=== PATIENT | male | born 1975 | race Caucasian/White ===

== ENCOUNTER 2024-01-30 19:17 | Emergency (ER) | payer BC, OTHER ==
--- NOTE | 2024-01-30 20:07 | RAD REPORT ---
EXAMINATION: ONE VIEW CHEST XR CLINICAL INDICATION: ABDOMINAL DISTENTION TECHNIQUE: Frontal chest projection is submitted. Examination is limited by patient positioning and t echnique. COMPARISON: 02/01/2018 FINDINGS: Lungs are mildly emphysematous but clear. The heart is normal in size. No displaced fractures identif ied. Cervical hardware plate. IMPRESSION: No acute intrathoracic abnormalities.
[2024-01-30] MEDS ORDERED: ONDANSETRON 4 MG/2 ML VIAL ONE (21:44)
[2024-01-30] MEDS ORDERED: NA CHLORIDE 0.9% 1,000 ML ONE (21:44)
[2024-01-30] MEDS ORDERED: FAMOTIDINE 20 MG/2 ML VIAL IV ONE (21:44)
[2024-01-30] MEDS ORDERED: METOCLOPRAMIDE 10 MG/2mL INJ ONE (21:44)
[2024-01-30] MEDS ORDERED: MORPHINE 4 MG/ML SYR ONE (21:44)
[2024-01-30 21:59] LABS: Absolute Eosinophils 0.1 K/uL (0-0.5); Absolute Lymphocytes (CBC) 1.6 K/uL (0.7-4.9); Absolute Monocytes 0.5 K/uL (0.1-1.3); Absolute Neutrophil 4.1 K/uL (1.8-8.0); Basophils % 0.6 % (0-1.3); Eosinophils % 1.8 % (0-4.4); Hematocrit 39.6 % (39.6-49.0); Hemoglobin 13.2 g/dL (13.6-17.9); Lymphocytes % 25.3 % (15.3-44.8); MCH 30.9 pg (27.0-35.0); MCHC 33.5 g/dL (32.0-36.0); MCV 92.4 fL (80-100); MPV 8.4 fL (7.6-11.3); Monocytes % 7.4 % (3.3-12.3); Neutrophils % 64.9 % (41.7-73.7); Nucleated Red Blood Cells % 0.1 % (0-0); Platelets 195 thou/uL (152-406); RBC Red Blood Cell Count 4.29 M/uL (4.33-5.43); Red Cell Distribution Width 13.2 % (12.1-15.2)
[2024-01-30 22:11] LABS: Albumin 4.1 g/dL (3.4-5.0); Albumin/Globulin Ratio 1.3 (1.1-1.8); Anion Gap 12.5 mEq/L (5.0-15.0); Bilirubin Total 2.5 mg/dL (0.2-1.0); Globulin 3.2 g/dL (2.3-3.5); Potassium 3.5 mEq/L (3.5-5.1); Protein, Total 7.3 g/dL (6.4-8.2)
[2024-01-30 22:53] LABS: SARS-CoV-2 Antigen CONTROL BLUE LINE VIS/BG OK; SARS-CoV-2 Antigen Rapid Res Negative (Negative)
--- NOTE | 2024-01-30 23:39 | RAD REPORT ---
EXAM: US ABDOMEN LIMITED HISTORY: 48-year-old male. ABD PAIN COMPARISON: No relevant imaging studies available. FINDINGS: Grayscale and color-flow imaging was obtained. Partially visualized liver demonstrates diffuse increased echotexture, most suggestive of diffuse mildred atosis, with adipose tissue sparing adjacent to the gallbladder. No cholelithiasis, or biliary duct dilatation. Negative sonographic Zimmerman's sign was reported. Gallbladder wall measures 1.9 mm IMPRESSION: 1. No cholelithiasis or biliary duct dilatation. 2. Partially visualized hepatic steatosis, with hepatic adipose tissue sparing adjacent to the gallbl adder. Electronically signed by: Alexander English MD 01/30/2024 11:13 PM [facility] Due to temporary technical issues with the PACS/[employer] scribe reporting system, reports are being signed by the in-house radiologist without review as a courtesy to ensure prompt reporting the interpreting radiologist is fully responsible for the content of the report. Transcribed Date/Time: 01/30/2024 11:38 PM
[2024-01-31 00:38] LABS: Troponin High Sensitivity 5.3 pg/mL (<58.9)
[2024-01-31 00:51] LABS: Specific Gravity > 1.030 (1.005-1.030); Sqamous Epithelial None Seen /HPF (None Seen); Urine Bacteria None Seen /HPF (<20); Urine Bilirubin NEGATIVE (Negative); Urine Blood Negative (Negative); Urine Clarity Clear (Clear); Urine Color Yellow (Yellow); Urine Culture Reflex Order NOT NEEDED; Urine Glucose NEGATIVE (Negative); Urine Ketones 1+ (Negative); Urine Microscopic Reflex YN ORDER UMIC; Urine Mucus 1+ /HPF (None Seen); Urine Nitrite NEGATIVE (Negative); Urine Protein TRACE (Negative); Urine RBC None Seen /HPF (None Seen); Urine Urobilinogen 1+ (Normal); Urine WBC <5 /HPF (<5)
--- NOTE | 2024-01-31 02:32 | RAD REPORT ---
EXAM: CT Abdomen and Pelvis With Intravenous Contrast CLINICAL HISTORY: Abd pain. TECHNIQUE: Axial computed tomography images of the abdomen and pelvis with intravenous contrast. Sagittal and coronal reformatted images were created and reviewed. This CT exam was performed using one or more of the following dose reduction techniques: automated exposure control, adjustment of the mA a nd/or kV according to patient size, and/or use of iterative reconstruction technique. COMPARISON: US Abdomen 01/30/2024 10.34 PM. FINDINGS: Lung bases: Unremarkable. No mass. No consolidation. ABDOMEN: Liver: The liver is diffusely low in density compatible with steatosis. Gallbladder and bile ducts: Unremarkable. No calcified stones. No ductal dilation. Pancreas: Unremarkable. No mass. No ductal dilation. Spleen: Unremarkable. No splenomegaly. Adrenals: Unremarkable. No mass. Kidneys and ureters: Normal renal cortical enhancement. No calculi. No hydronephrosis. 3.3 cm lef t renal cyst. Additional subcentimeter hypodensities bilaterally which are too small to characterize. No follow-up imaging is recommended. JACR 2018 Apr; 264-273, Management of the Incident al Renal Mass on CT, [employer] 2020; 814-848, Bosniak Classification of Cystic Renal Masses, Version 2019. Stomach and bowel: Colonic diverticula without adjacent inflammatory change. No obstruction. No mucosal thickening. PELVIS: Appendix: The appendix is not visualized. Pericecal suture material/clip suggestive of prior append ectomy. Bladder: Unremarkable. No mass. Reproductive: Unremarkable as visualized. ABDOMEN and PELVIS: Intraperitoneal space: Unremarkable. No free air. No significant fluid collection. Bones/joints: Multilevel spondylosis. No acute fracture. No dislocation. Soft tissues: Tiny fat-containing umbilical and small bilateral fat-containing inguinal hernias. Vasculature: Unremarkable. No abdominal aortic aneurysm. Lymph nodes: Unremarkable. No enlarged lymph nodes. IMPRESSION: 1. No acute inflammatory process identified within the abdomen and pelvis. 2. Other findings as above. Electronically signed by: Erma Carter MD 01/31/2024 02:28 AM [facility] Due to temporary technical issues with the PACS/[employer] reporting system, reports are being miguel d by the in-house radiologist without review as a courtesy to ensure prompt reporting the interpreting radiologist is fully responsible for the content of the report. Transcribed Date/Time: 01/31/2024 2:31 AM
--- NOTE | 2024-01-31 02:41 | ER ---
Nurse's Notes [facility] Name: Jerry Valencia Age: 48 yrs Sex: Male : 1975 Arrival Date: 01/30/2024 Time: 19:17 Bed 14 Private MD: Diagnosis: Acute gastritis;Epigastric pain Presentation: 01/29 19:54 Chief complaint: Patient states: UMBILICAL PAIN THAT RADIATES TO STERNUM ONSET 12/17. cm10 PT STATES THAT THE PAIN GOT WORSE TODAY. PT REPORTS THAT IT STARTED OFF BURNING PAIN AND IS NOW A STABBING PAIN. PT REPORTS NAUSEA. Coronavirus screen: Client denies travel out of the [place] in the last 14 days. Ebola Screen: Patient denies travel to an Ebola-affected area in the 21 days before illness onset. No symptoms or risks identified at this time. Initial Sepsis Screen: Does the patient meet any 2 criteria? No. Patient's initial sepsis screen is negative. Does the patient have a suspected source of infection? No. Patient's initial sepsis screen is negative. Risk Assessment: Do you want to hurt yourself or someone else? Patient reports no desire to harm self or others. Onset of symptoms was January 30, 2024. 19:54 Method Of Arrival: Wheelchair cm10 19:54 Acuity: RONNELL 3 cm10 Triage Assessment: 19:56 General: Appears uncomfortable, Behavior is cooperative. Pain: Complains of pain in cm10 umbilical area Pain radiates to epigastric area Pain currently is 7 out of 10 on a pain scale. Quality of pain is described as burning, sharp, Pain began suddenly. Neuro: No deficits noted. Level of Consciousness is awake, alert, obeys commands, Oriented to person, place, time, situation, Appropriate for age. Respiratory: No deficits noted. Airway is patent Respiratory effort is even, unlabored, Respiratory pattern is regular, symmetrical. Historical: - Allergies: 19:55 No Known Allergies; cm10 - PMHx: 19:55 GERD; Hypertensive disorder; cm10 - Immunization history:: Adult Immunizations up to date. - Infectious Disease History:: Denies. - Social history:: Smoking status: Patient denies any tobacco usage or history of. - Family history:: not pertinent. Screenin:03 [facility] ED Fall Risk Assessment (Adult) History of falling in the last 3 months, ay including since admission No falls in past 3 months (0 pts) Confusion or Disorientation No (0 pts) Intoxicated or Sedated No (0 pts) Impaired Gait No (0 pts) Mobility Assist Device Used No (0 pt) Altered Elimination No (0 pt) Score/Fall Risk Level 0 - 2 = Low Risk Oriented to surroundings, Maintained a safe environment, Educated pt \T\ family on fall prevention, incl call for assistance when getting out of bed, Assessed \T\ reinforced patient's understanding of fall precautions, Hourly rounding (assess needs \T\ fall precautionary measures) done, Used ambulatory aids as needed (educated on \T\ assisted with), Used gait belt as appropriate. Abuse screen: Denies threats or abuse. Nutritional screening: No deficits noted. Tuberculosis screening: No symptoms or risk factors identified. Assessment: 22:03 Reassessment: Patient appears in no apparent distress at this time. Patient and/or ay family updated on plan of care and expected duration. Pain level reassessed. Patient is alert, oriented x 3, equal unlabored respirations, skin warm/dry/pink. General: Appears in no apparent distress. uncomfortable, Behavior is calm, cooperative, appropriate for age. Pain: Complains of pain in epigastric area Pain currently is 8 out of 10 on a pain scale. Neuro: No deficits noted. Level of Consciousness is awake, alert, obeys commands, Oriented to person, place, time, situation, Appropriate for age. Cardiovascular: Denies chest pain, Capillary refill < 3 seconds in bilateral fingers Patient's skin is warm and dry. Rhythm is sinus rhythm. Respiratory: No deficits noted. Airway is patent Respiratory effort is even, unlabored, Respiratory pattern is regular, symmetrical, Breath sounds are clear bilaterally. GI: Abdomen is round distended, Bowel sounds present X 4 quads. Abdomen is tender to palpation in epigastric area and left upper quadrant Reports upper abdominal pain, nausea, Pain is 8 out of 10 on a pain scale. vomiting. : No signs and/or symptoms were reported regarding the genitourinary system. EENT: No signs and/or symptoms were reported regarding the EENT system. Derm: No signs and/or symptoms reported regarding the dermatologic system. Musculoskeletal: No signs and/or symptoms reported regarding the musculoskeletal system. 23:40 Reassessment: Patient appears in no apparent distress at this time. Patient and/or bm8 family updated on plan of care and expected duration. Pain level reassessed. Patient is alert, oriented x 3, equal unlabored respirations, skin warm/dry/pink. Patient states feeling better. Patient states symptoms have improved. 01/30 01:22 Reassessment: Patient appears in no apparent distress at this time. Patient and/or bm8 family updated on plan of care and expected duration. Pain level reassessed. Patient is alert, oriented x 3, equal unlabored respirations, skin warm/dry/pink. awaiting ct results Patient denies pain at this time. Patient states feeling better. Patient states symptoms have improved. 02:05 Reassessment: Patient appears in no apparent distress at this time. No changes from bm8 previously documented assessment. Patient and/or family updated on plan of care and expected duration. Pain level reassessed. Patient is alert, oriented x 3, equal unlabored respirations, skin warm/dry/pink. Patient denies pain at this time. Patient states feeling better. Patient states symptoms have improved. 02:52 Reassessment: Patient appears in no apparent distress at this time. Patient and/or bm8 family updated on plan of care and expected duration. Pain level reassessed. Patient is alert, oriented x 3, equal unlabored respirations, skin warm/dry/pink. Patient denies pain at this time. Patient states feeling better. Patient states symptoms have improved. Vital Signs: 01/29 19:54 BP 146 / 98; Pulse 59; Resp 18; Temp 98.3(O); Pulse Ox 100% on R/A; Weight 123.38 kg cm10 (R); Height 6 ft. 0 in. ; Pain 7/10; 22:03 BP 116 / 75; Pulse 48; Resp 16; Temp 98.3; Pulse Ox 98% on R/A; Pain 0/10; ay 23:40 BP 114 / 71; Pulse 51; Resp 17; Temp 98.3; Pulse Ox 99% ; Pain 2/10; bm8 01/30 01:22 BP 116 / 75; Pulse 44; Resp 17; Temp 98.5; Pulse Ox 100% ; Pain 0/10; bm8 02:05 BP 109 / 73; Pulse 48; Resp 17; Temp 98.2; Pulse Ox 98% on R/A; Pain 0/10; bm8 02:52 BP 119 / 80; Pulse 48; Resp 17; Temp 98.5; Pulse Ox 98% ; Pain 0/10; bm8 01/29 19:54 Body Mass Index 36.89 (123.38 kg, 182.88 cm) cm10 01/29 19:54 Pain Scale: Adult cm10 22:03 Pain Scale: Adult ay 23:40 Pain Scale: Adult bm8 01/30 01:22 Pain Scale: Adult bm8 02:05 Pain Scale: Adult bm8 02:52 Pain Scale: Adult bm8 [place] Coma Score: 01/29 22:03 Eye Response: spontaneous(4). Motor Response: obeys commands(6). Verbal Response: ay oriented(5). Total: 15. 23:40 Eye Response: spontaneous(4). Motor Response: obeys commands(6). Verbal Response: bm8 oriented(5). Total: 15. 01/30 01:22 Eye Response: spontaneous(4). Motor Response: obeys commands(6). Verbal Response: bm8 oriented(5). Total: 15. 02:05 Eye Response: spontaneous(4). Motor Response: obeys commands(6). Verbal Response: bm8 oriented(5). Total: 15. 02:52 Eye Response: spontaneous(4). Motor Response: obeys commands(6). Verbal Response: bm8 oriented(5). Total: 15. 20:26 Eye Response: spontaneous(4). Motor Response: obeys commands(6). Verbal Response: sp4 oriented(5). Total: 15. ED Course: 01/29 19:20 Patient arrived in ED. gm2 19:30 Carlos Nam MD is Attending Physician. sarmad 19:55 Triage completed. cm10 19:56 Arm band placed on right wrist. Patient placed in waiting room. cm10 19:58 Chest Single View XRAY In Process Unspecified. EDMS 19:58 Attending Physician role handed off by Carlos Nam MD sp4 19:58 Heath Rizo MD is Attending Physician. sp4 21:41 Adrian Luo, RN is Primary Nurse. ay 21:43 Radiology exam delayed due to lab results not completed at this time. IV insertion jc4 attempt and/or patient not having appropriate IV at this time. 22:03 Patient has correct armband on for positive identification. Bed in low position. Call ay light in reach. Side rails up X 1. Adult w/ patient. Client placed on continuous cardiac and pulse oximetry monitoring. NIBP monitoring applied. lead retail sales associate on. Pulse ox on. NIBP on. Door closed. Noise minimized. Visitors limited. Warm blanket given. Pillow given. Verbal reassurance given. 22:03 No provider procedures requiring assistance completed. Initial lab(s) drawn, by cherry mills sent to lab. EKG done, by ED staff, reviewed by Heath Rizo MD. Inserted saline lock: 18 gauge in right antecubital area, using aseptic technique. Blood collected. Flushed with 10 mL NS. Patient maintains SpO2 saturation greater than 95% on room air. 22:32 CT Abd/Pelvis - IV Contrast Only In Process Unspecified. EDMS 22:55 US Abdomen Limited In Process Unspecified. EDMS 01/30 02:52 Provided Education on: post er care. [facility] 02:52 IV discontinued, intact, bleeding controlled, No redness/swelling at site. Pressure bm8 dressing applied. Administered Medications: 01/29 21:52 Drug: metoCLOPramide IVP 10 mg IVP once; over 1 to 2 minutes Route: IVP; Site: right ay antecubital; 01/30 00:44 Follow up: Response: No adverse reaction [facility] 01/29 21:53 Drug: Famotidine IVP 20 mg IVP once; dilute with 10 mL 0.9% NaCl; give over 2 minutes ay Route: IVP; Site: right antecubital; 01/30 00:45 Follow up: Response: No adverse reaction [facility] 01/29 21:53 Drug: Ondansetron IVP 4 mg IVP once; over 2 minutes Route: IVP; Site: right antecubital;ay 01/30 00:45 Follow up: Response: No adverse reaction [facility] 01/29 21:53 Drug: NS 0.9% IV 1000 ml IV at 1 bolus Per protocol; to be given as a bolus over 60 ay minutes Route: IV; Rate: 1 bolus; Site: right antecubital; 01/30 00:45 Follow up: Response: No adverse reaction; IV Status: Completed infusion; IV Intake: bm8 1000ml 01/29 21:53 Drug: morphine IVP or IV 8 mg IVP once over 4 mins Route: IVP; Infused Over: 4 mins; ay Site: right antecubital; 01/30 00:44 Follow up: Response: No adverse reaction bm8 Medication: 01/29 22:03 VIS not applicable for this client. ay Intake: 01/30 00:45 IV: 1000ml; Total: 1000ml. bm8 Outcome: 02:41 Discharge ordered by MD. noriega 02:52 Discharged to home ambulatory, with family, bm8 02:52 Condition: stable 02:52 Discharge instructions given to patient, family, Instructed on discharge instructions, follow up and referral plans. medication usage, safety practices, Demonstrated understanding of instructions, follow-up care, medications, Prescriptions given X 1, 02:53 Patient left the ED. bm8 Signatures: Dispatcher [employer] EDCarlos Bustamante MD MD cha Potepalov, Sergey, MD MD sp4 Martinez, Clarissa, RN RN Sadie Muir gm2 Jose Wallace RN RN bm8 Jr Mcgee Awudu, RN ANJALI ay
--- NOTE | 2024-01-31 02:41 | EDPHYS ---
Physician Documentation [facility] Name: Jerry Valencia Age: 48 yrs Sex: Male : 1975 Arrival Date: 01/30/2024 Time: 19:17 Bed 14 Private MD: ED Physician Heath Rizo HPI: 01/29 19:59 This 48 yrs old Male presents to ER via Wheelchair with complaints of sp4 Abdominal Pain, Fever, Pt is clammy feeling. 01/30 20:26 48-year-old male presents with complaint of upper abdominal pain fever nausea feeling sp4 unwell. Patient states he has a history of GERD and gastritis. Endoscopy was done in the mid January and has revealed non-H. pylori gastritis without ulcers. Patient takes Protonix 40 mg p.o. daily. Today patient has developed upper abdominal pain associated with subjective fever associated with nausea. . Historical: - Allergies: 01/29 19:55 No Known Allergies; cm10 - PMHx: 19:55 GERD; Hypertensive disorder; cm10 - Immunization history:: Adult Immunizations up to date. - Infectious Disease History:: Denies. - Social history:: Smoking status: Patient denies any tobacco usage or history of. - Family history:: not pertinent. ROS: 01/30 20:26 Constitutional: Negative for chills, and weight loss, positive for upper abdominal sp4 pain, positive for subjective fever, positive for nausea positive for diaphoresis All other systems are negative, Exam: 20:26 Constitutional: This is a well developed, well nourished patient who is awake, alert, sp4 and in no acute distress. Head/Face: Normocephalic, atraumatic. Eyes: Pupils equal round and reactive to light, extra-ocular motions intact. Lids and lashes normal. Conjunctiva and sclera are not injected. Cornea within normal limits. Periorbital areas with no swelling, redness, or edema. ENT: Nares patent. No nasal discharge, no septal abnormalities noted. Tympanic membranes are normal and external auditory canals are clear. Oropharynx with no redness, swelling, or masses, exudates, or evidence of obstruction, uvula midline. Mucous membranes moist. Neck: Trachea midline, no thyromegaly or masses palpated, and no cervical lymphadenopathy. Supple, full range of motion without nuchal rigidity, or vertebral point tenderness. Chest/axilla: Normal chest wall appearance and motion. Nontender with no deformity. No lesions are appreciated. Cardiovascular: Regular rate and rhythm with a normal S1 and S2. No gallops, murmurs, or rubs. Normal PMI, no JVD. No pulse deficits. Respiratory: Lungs have equal breath sounds bilaterally, clear to auscultation and percussion. No rales, rhonchi or wheezes noted. No increased work of breathing, no retractions or nasal flaring. Abdomen/GI: Soft, with normal bowel sounds. No distension or tympany. No guarding or rebound. No evidence of tenderness throughout. Back: No spinal tenderness. No costovertebral tenderness. Skin: Warm, dry with normal turgor. Normal color with no rashes, no lesions, and no evidence of cellulitis. MS/ Extremity: Pulses equal, no cyanosis. Neurovascular intact. Full, normal range of motion. Neuro: Awake and alert, GCS 15, oriented to person, place, time, and situation. Cranial nerves II-XII grossly intact. Motor strength 5/5 in all extremities. Sensory grossly intact. Psych: Awake, alert, with orientation to person, place and time. Behavior, mood, and affect are within normal limits 20:26 ECG was reviewed by the Attending Physician. EKG at 2152 sinus bradycardia rate 53 Vital Signs: 01/29 19:54 BP 146 / 98; Pulse 59; Resp 18; Temp 98.3(O); Pulse Ox 100% on R/A; Weight 123.38 kg cm10 (R); Height 6 ft. 0 in. ; Pain 7/10; 22:03 BP 116 / 75; Pulse 48; Resp 16; Temp 98.3; Pulse Ox 98% on R/A; Pain 0/10; ay 23:40 BP 114 / 71; Pulse 51; Resp 17; Temp 98.3; Pulse Ox 99% ; Pain 2/10; bm8 01/30 01:22 BP 116 / 75; Pulse 44; Resp 17; Temp 98.5; Pulse Ox 100% ; Pain 0/10; bm8 02:05 BP 109 / 73; Pulse 48; Resp 17; Temp 98.2; Pulse Ox 98% on R/A; Pain 0/10; bm8 02:52 BP 119 / 80; Pulse 48; Resp 17; Temp 98.5; Pulse Ox 98% ; Pain 0/10; bm8 01/29 19:54 Body Mass Index 36.89 (123.38 kg, 182.88 cm) cm10 01/29 19:54 Pain Scale: Adult cm10 22:03 Pain Scale: Adult ay 23:40 Pain Scale: Adult bm8 01/30 01:22 Pain Scale: Adult bm8 02:05 Pain Scale: Adult bm8 02:52 Pain Scale: Adult bm8 Josy Coma Score: 01/29 22:03 Eye Response: spontaneous(4). Motor Response: obeys commands(6). Verbal Response: ay oriented(5). Total: 15. 23:40 Eye Response: spontaneous(4). Motor Response: obeys commands(6). Verbal Response: bm8 oriented(5). Total: 15. 01/30 01:22 Eye Response: spontaneous(4). Motor Response: obeys commands(6). Verbal Response: bm8 oriented(5). Total: 15. 02:05 Eye Response: spontaneous(4). Motor Response: obeys commands(6). Verbal Response: bm8 oriented(5). Total: 15. 02:52 Eye Response: spontaneous(4). Motor Response: obeys commands(6). Verbal Response: bm8 oriented(5). Total: 15. 20:26 Eye Response: spontaneous(4). Motor Response: obeys commands(6). Verbal Response: sp4 oriented(5). Total: 15. MDM: 01/29 19:30 Medical Screening Exam initiated [facility] 19:57 Medical Screening Exam initiated [facility] 01/30 01:37 ED course: EXAM: US ABDOMEN LIMITED HISTORY: 48-year-old male. ABD PAIN COMPARISON: No sp4 relevant imaging studies available. FINDINGS: Grayscale and color-flow imaging was obtained. Partially visualized liver demonstrates diffuse increased echotexture, most suggestive of diffuse steatosis, with adipose tissue sparing adjacent to the gallbladder. No cholelithiasis, or biliary duct dilatation. Negative sonographic Zimmerman's sign was reported. Gallbladder wall measures 1.9 mm IMPRESSION: 1. No cholelithiasis or biliary duct dilatation. 2. Partially visualized hepatic steatosis, with hepatic adipose tissue sparing adjacent to the gallbladder. . 02:34 ED course: EXAM: CTAbdomen and Pelvis With Intravenous Contrast CLINICAL HISTORY: Abd sp4 pain. TECHNIQUE: Axial computed tomography images of the abdomen and pelvis with intravenous contrast. Sagittal and coronal reformatted images were created and reviewed. This CT exam was performed using one or more of the following dose reduction techniques: automated exposure control, adjustment of the mA and/or kV according to patient size, and/or use of iterative reconstruction technique. COMPARISON: US Abdomen 01/30/2024 10.34 PM. FINDINGS: Lung bases: Unremarkable. No mass. No consolidation. ABDOMEN: Liver: The liver is diffusely low in density compatible with steatosis. Gallbladder and bile ducts: Unremarkable. No calcified stones. No ductal dilation. Pancreas: Unremarkable. No mass. No ductal dilation. Spleen: Unremarkable. No splenomegaly. Adrenals: Unremarkable. No mass. Kidneys and ureters: Normal renal cortical enhancement. No calculi. No hydronephrosis. 3.3 cm left renal cyst. Additional subcentimeter hypodensities bilaterally which are too small to characterize. No follow-up imaging is recommended. JACR 2018 Apr; 264-273, Management of the Incidental Renal Mass on CT, [employer] 2020; 814-848, Bosniak Classification of Cystic Renal Masses, Version 2019. Stomach and bowel: Colonic diverticula without adjacent inflammatory change. No obstruction. No mucosal thickening. PELVIS: Appendix: The appendix is not visualized. Pericecal suture material/clip suggestive of prior appendectomy. Bladder: Unremarkable. No mass. Reproductive: Unremarkable as visualized. ABDOMEN and PELVIS: Intraperitoneal space: Unremarkable. No free air. No significant fluid collection. Bones/joints: Multilevel spondylosis. No acute fracture. No dislocation. Soft tissues: Tiny fat-containing umbilical and small bilateral fat-containing inguinal hernias. Vasculature: Unremarkable. No abdominal aortic aneurysm. Lymph nodes: Unremarkable. No enlarged lymph nodes. IMPRESSION: 1. No acute inflammatory process identified within the abdomen and pelvis. 2. Other findings as above. Electronically signed by: Erma Carter MD 01/31/2024 02:28 AM [employer] RP. 20:37 Differential diagnosis: viral Infection, bacterial infection, bronchitis, pneumonia sp4 gastroenteritis, meningitis. Data reviewed: vital signs, nurses notes, lab test result(s), EKG, radiologic studies, CT scan, ultrasound. ED course: Patient has completely improved on a course of ER. Pain has resolved. Stable for discharge home. Advised to continue omeprazole and add Pepcid 20 mg twice a day.. 01/29 19:31 Order name: CBC with Diff; Complete Time: 22:12 [facility] 01/29 19:31 Order name: CMP; Complete Time: 22:12 [facility] 01/29 19:31 Order name: Lipase; Complete Time: 22:12 [facility] 01/29 19:31 Order name: Urinalysis w/ reflexes; Complete Time: 01:31 [facility] 01/29 19:31 Order name: Flu; Complete Time: 23:13 [facility] 01/29 19:31 Order name: Strep; Complete Time: 23:13 [facility] 01/29 19:31 Order name: SARS RAPID; Complete Time: 23:13 [facility] 01/29 19:59 Order name: Troponin High Sensitivity; Complete Time: 01:31 sp4 01/29 19:59 Order name: BNP; Complete Time: 01:31 [facility] 01/29 22:56 Order name: Throat Culture [facility] 01/29 19:31 Order name: Chest Single View XRAY; Complete Time: 20:18 [facility] 01/29 20:18 Order name: CT Abd/Pelvis - IV Contrast Only [facility] 01/29 22:16 Order name: US Abdomen Limited [facility] 01/29 19:31 Order name: IV Saline Lock; Complete Time: 21:41 [facility] 01/29 19:31 Order name: Labs collected and sent; Complete Time: 21:41 [facility] 01/29 19:59 Order name: EKG - Nurse/Tech; Complete Time: 21:53 sp4 EC/27 21:52 Rate is 53 beats/min. Rhythm is regular, Sinus bradycardia. QRS [place] is Normal. [place] sp4 interval is normal. QRS interval is normal. QT interval is normal. No Q waves. T waves are Normal. No ST changes noted. Clinical impression: No evidence of ischemia. Interpreted by me. Reviewed by me. Administered Medications: 21:52 Drug: metoCLOPramide IVP 10 mg IVP once; over 1 to 2 minutes Route: IVP; Site: right ay antecubital; 01/30 00:44 Follow up: Response: No adverse reaction 8 01/29 21:53 Drug: Famotidine IVP 20 mg IVP once; dilute with 10 mL 0.9% NaCl; give over 2 minutes ay Route: IVP; Site: right antecubital; 01/30 00:45 Follow up: Response: No adverse reaction bm8 01/29 21:53 Drug: Ondansetron IVP 4 mg IVP once; over 2 minutes Route: IVP; Site: right antecubital;ay 01/30 00:45 Follow up: Response: No adverse reaction bm8 01/29 21:53 Drug: NS 0.9% IV 1000 ml IV at 1 bolus Per protocol; to be given as a bolus over 60 ay minutes Route: IV; Rate: 1 bolus; Site: right antecubital; 01/30 00:45 Follow up: Response: No adverse reaction; IV Status: Completed infusion; IV Intake: bm8 1000ml 01/29 21:53 Drug: morphine IVP or IV 8 mg IVP once over 4 mins Route: IVP; Infused Over: 4 mins; ay Site: right antecubital; 01/30 00:44 Follow up: Response: No adverse reaction bm8 Disposition Summary: 01/31/24 02:41 Discharge Ordered Notes: Continue Protonix as prescribed Location: Home sp4 Problem: new sp4 Symptoms: have improved sp4 Condition: Stable sp4 Diagnosis - Acute gastritis sp4 - Epigastric pain sp4 Followup: sp4 - With: Private Physician - When: 7 - 10 days - Reason: Recheck today's complaints Discharge Instructions: - Discharge Summary Sheet sp4 - Gastritis, Adult, [id number] sp4 - Clear Liquid Diet, Adult, [id number] sp4 Forms: - Patient Portal Instructions sp4 Prescriptions: - Pepcid 20 mg Oral tablet - take 1 tablet ORAL route every 12 hours for 30 days; 60 tablet; Refills: 0, sp4 Product Selection Permitted Signatures: Dispatcher [employer] EDCarlos Bustamante MD MD cha Potepalov, Sergey, MD MD sp4 Debo Dominguez RN RN cm10 Adrian Luo RN RN ay McDonald, Brad RN bm8 Corrections: (The following items were deleted from the chart) 01/29 19:32 19:31 CBC+H.LAB.BRZ ordered. EDMS EDMS 19:32 19:31 COMPREHENSIVE METABOLIC PANEL+C.LAB.BRZ ordered. EDMS EDMS 19:32 19:31 LIPASE+C.LAB.BRZ ordered. EDMS EDMS 19:32 19:31 Urinalysis+U.LAB.BRZ ordered. EDMS EDMS 19:31 Influenza Screen (A \T\ B)+BA.LAB.BRZ ordered. EDMS EDMS 19:31 Group A Streptococcus Rapid Sc+BA.LAB.BRZ ordered. EDMS EDMS 19:31 SARS-COV-2 Antigen Rapid+I.LAB.BRZ ordered. EDMS EDMS 19:32 Chest Single View+RAD.RAD.BRZ ordered. EDMS EDMS
[2024-01-31 03:28] VITALS: O2SAT 98
[2024-01-31 03:30] VITALS: BP 119/80; TEMP 98.5
--- NOTE | 2024-02-03 14:18 | EKG ---
Test Date: 2024-01-30 Test Time: 21:52:10 Transportation Clerk: ENRRIQUE MEASUREMENT RESULTS: Intervals: Rate: 53 VT: 186 QRSD: 108 QT: 448 QTc: 420 [place]: P: 43 VT: 186 QRS: 75 T: 58 INTERPRETIVE STATEMENTS: Sinus bradycardia Otherwise normal ECG No previous ECG available for comparison Electronically Signed On 02-03-24 14:15:06 PUBLICIST by Jm Hinojosa
== END 2024-01-31 02:53 | disposition home or self-care (01) ==
LOC: ER 19:17
DX: K29.00 Acute gastritis without bleeding (principal); Z11.52 Encounter for screening for COVID-19; I10 Essential (primary) hypertension
CPT/HCPCS: 96361; 93005; 87070; 85025; 81001; 36415; 87081; 84484; 83690; 80053; 83880; 87804 ×2; 74177; 71045; 76705; 96375; 96374; 99285; 87811; Q9967; J2765; J2405; J7030